=== PATIENT | male | born 1960 | race Caucasian/White ===

== ENCOUNTER 2019-01-18 07:20 | Observation (INO) | payer BC ==
--- NOTE | 2019-01-18 08:04 | ED ---
General Adult HPI - General Chief complaint: Psychiatric Symptoms Stated complaint: hallucinations Time Seen by Provider: 01/18/19 07:25 Source: patient, EMS, RN notes reviewed Mode of arrival: EMS - History of Present Illness Initial comments: This a 58-year-old male who is brought in by claude. 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 Patient was stating he got out of his some aromatic rifle because he was seeingthings in his backyard and it was concerning to him. Patient states she's never seen a syncopal for and when I asked him if he thought they were real he stated that they certainly look real to him. Patient denies any physical complaints to me. Patient denies headache patient denies numbness weakness. Patient denies chest pain difficult breathing or shortness of breath. Patient denies any palpitations. Patient denies abdominal pain patient denies nausea vomiting diarrhea. Patient denies any recent history of fever or chills patient states he didn't sleep much last night. Patient states she got home from work one coughing came home about 9:00 tonight and he doesn't really know why he didn't sleep. Patient denies any drug use and states he is not intoxicated. Patient states he has no history of any mental illness - Related Data Home Medications Medication Instructions Recorded Confirmed ALPRAZolam [Xanax] 0.5 mg PO BID 01/18/19 01/18/19 Amiodarone [Cordarone] 200 mg PO DAILY 01/18/19 01/18/19 Atorvastatin [Lipitor] 10 mg PO DAILY 01/18/19 01/18/19 Carvedilol [Coreg] 25 mg PO BID 01/18/19 01/18/19 Colchicine 0.6 mg PO BID PRN 01/18/19 01/18/19 Hydrochlorothiazide [Hydrodiuril] 25 mg PO DAILY 01/18/19 01/18/19 Levothyroxine Sodium [Synthroid] 50 mcg PO DAILY 01/18/19 01/18/19 Losartan [Cozaar] 25 mg PO DAILY 01/18/19 01/18/19 Multivitamins, Thera [Multivitamin 1 tab PO DAILY 01/18/19 01/18/19 (formulary)] [place]-3 Fatty Acids/Fish Oil [Fish 1 cap PO DAILY 01/18/19 01/18/19 Oil 1,000 mg Softgel] Rivaroxaban [Xarelto] 20 mg PO DAILY 01/18/19 01/18/19 metFORMIN HCL [Glucophage] 500 mg PO BID 01/18/19 01/18/19 Allergies Allergy/AdvReac Type Severity Reaction Status Date / Time No Known Allergies Allergy Unverified 01/18/19 08:09 Review of Systems ROS Statement: Those systems with pertinent positive or pertinent negative responses have been documented in the HPI. ROS Other: All systems not noted in ROS Statement are negative. Past Medical History Past Medical History: Unable to Obtain History of Any Multi-Drug Resistant Organisms: None Reported Past Surgical History: Unable to Obtain Past Psychological History: No Psychological Hx Reported Smoking Status: Unknown if ever smoked Past Alcohol Use History: Unable to Obtain Past Drug Use History: Unable to Obtain General Exam - General Exam Comments Initial Comments: GENERAL: Patient is well-developed and well-nourished. Patient is nontoxic and well- hydrated and is in no acute distress. ENT: Neck is soft and supple. No significant lymphadenopathy is noted. Oropharynx is clear. Moist mucous membranes. Neck has full range of motion without eliciting any pain. EYES: The sclera were anicteric and conjunctiva were pink and moist. Extraocular movements were intact and pupils were equal round and reactive to light. Eyelid s were unremarkable. PULMONARY: Unlabored respirations. Good breath sounds bilaterally. No audible rales rhonchi or wheezing was noted. CARDIOVASCULAR: There is a regular rate and rhythm without any murmurs gallops or rubs. ABDOMEN: Soft and nontender with normal bowel sounds. No palpable organomegaly was noted. There is no palpable pulsatile mass. SKIN: Skin is clear with no lesions or rashes and otherwise unremarkable. NEUROLOGIC: Patient is alert and oriented x3. Cranial nerves II through XII are grossly intact. Motor and sensory are also intact. Normal speech, volume and content. Symmetrical smile. MUSCULOSKELETAL: Normal extremities with adequate strength and full range of motion. No lower extremity swelling or edema. No calf tenderness. LYMPHATICS: No significant lymphadenopathy is noted PSYCHIATRIC: Patient was having visual hallucinations. Course Vital Signs 01/18/19 01/18/19 01/18/19 07:23 07:39 09:09 Temperature 97.0 F L Pulse Rate 70 70 71 Respiratory 18 16 18 Rate Blood Pressure 92/75 112/75 130/75 O2 Sat by Pulse 91 L 92 L 95 Oximetry Medical Decision Making - Medical Decision Making CAT scan head shows no acute abnormalities. Patient was not awake enough to speak with EPS so the patient was admitted and EPS to be contacted later. I spoke with some physicians agreed to admit the patient. - Lab Data Result diagrams: 01/18/19 08:05 01/18/19 08:05 Lab Results 01/18/19 01/18/19 01/18/19 Range/Units 08:05 08:05 08:05 WBC 6.7 (3.8-10.6) k/uL RBC 4.77 (4.30-5.90) m/uL Hgb 15.0 (13.0-17.5) gm/dL Hct 43.5 (39.0-53.0) % MCV 91.1 (80.0-100.0) fL MCH 31.4 (25.0-35.0) pg MCHC 34.5 (31.0-37.0) g/dL RDW 13.3 (11.5-15.5) % Plt Count 152 (150-450) k/uL Neutrophils % 60 % Lymphocytes % 27 % Monocytes % 9 % Eosinophils % 1 % Basophils % 1 % Neutrophils # 4.0 (1.3-7.7) k/uL Lymphocytes # 1.8 (1.0-4.8) k/uL Monocytes # 0.6 (0-1.0) k/uL Eosinophils # 0.1 (0-0.7) k/uL Basophils # 0.0 (0-0.2) k/uL Sodium 132 L (137-145) mmol/L Potassium 4.0 (3.5-5.1) mmol/L Chloride 99 (98-107) mmol/L Carbon Dioxide 25 (22-30) mmol/L Anion Gap 8 mmol/L BUN 18 (9-20) mg/dL Creatinine 0.97 (0.66-1.25) mg/dL Est GFR (CKD-EPI)AfAm >90 (>60 ml/min/1.73 sqM) Est GFR (CKD-EPI)NonAf 86 (>60 ml/min/1.73 sqM) Glucose 133 H (74-99) mg/dL Calcium 9.2 (8.4-10.2) mg/dL Magnesium 1.5 L (1.6-2.3) mg/dL Total Bilirubin 2.0 H (0.2-1.3) mg/dL AST 45 (17-59) U/L ALT 44 (21-72) U/L Alkaline Phosphatase 61 (38-126) U/L Total Protein 7.3 (6.3-8.2) g/dL Albumin 4.7 (3.5-5.0) g/dL Urine Opiates Screen Not Detected (NotDetected) Ur Oxycodone Screen Not Detected (NotDetected) Urine Methadone Screen Not Detected (NotDetected) Ur Propoxyphene Screen Not Detected (NotDetected) Ur Barbiturates Screen Not Detected (NotDetected) U Tricyclic Antidepress Not Detected (NotDetected) Ur Phencyclidine Scrn Not Detected (NotDetected) Ur Amphetamines Screen Not Detected (NotDetected) U Methamphetamines Scrn Not Detected (NotDetected) U Benzodiazepines Scrn Detected H (NotDetected) Urine Cocaine Screen Detected H (NotDetected) U Marijuana (THC) Screen Not Detected (NotDetected) Serum Alcohol <10 mg/dL Disposition Clinical Impression: Cocaine abuse with cocaine-induced psychotic disorder Disposition: ADMITTED IP TO THIS [facility] Referrals: Nonstaff,Physician [Primary Care Provider] - 1-2 days Time of Disposition: 10:35
[2019-01-18 08:21] LABS: Basophils % (A) 1 %; Eosinophils # (A) 0.1 k/uL (0-0.7); Eosinophils % (A) 1 %; HCT 43.5 % (39.0-53.0); Lymphocytes # (A) 1.8 k/uL (1.0-4.8); Lymphocytes % (A) 27 %; MCH 31.4 pg (25.0-35.0); MCHC 34.5 g/dL (31.0-37.0); MCV 91.1 fL (80.0-100.0); Mean Platelet Volume 7.9; Monocytes # (A) 0.6 k/uL (0-1.0); Monocytes % (A) 9 %; Neutrophils % (A) 60 %; Platelet Count 152 k/uL (150-450); RBC 4.77 m/uL (4.30-5.90); RDW 13.3 % (11.5-15.5); WBC 6.7 k/uL (3.8-10.6)
[2019-01-18] MEDS ORDERED: SODIUM CHLORIDE 0.9% 500 ML 500 ML IV ONE (08:25)
[2019-01-18] MEDS ORDERED: SODIUM CHLORIDE 0.9% 1,000 ML IV ONE ×2 (08:25→10:35)
[2019-01-18 08:27] LABS: Phencyclidine Screen,Urine Not Detected (NotDetected); Urn Cannabinoid Scrn Not Detected (NotDetected)
[2019-01-18 08:28] LABS: Amphetamine Screen,Urine Not Detected (NotDetected); Barbiturate Screen,Urine Not Detected (NotDetected); Benzodiazepines Screen,Urine Detected (NotDetected); Cocaine Screen,Urine Detected (NotDetected); Methadone Screen, Urine Not Detected (NotDetected); Opiate Screen,Urine Not Detected (NotDetected); Oxycodone Screen, Urine Not Detected (NotDetected); Tricyclic Antidepressant,Urine Not Detected (NotDetected)
[2019-01-18 08:35] LABS: ALT 44 U/L (21-72); AST 45 U/L (17-59); Albumin 4.7 g/dL (3.5-5.0); Alcohol <10 mg/dL; Alkaline Phosphatase 61 U/L (38-126); Anion Gap 8 mmol/L; Blood Urea Nitrogen 18 mg/dL (9-20); Calcium 9.2 mg/dL (8.4-10.2); Carbon Dioxide 25 mmol/L (22-30); Chloride 99 mmol/L (98-107); Glucose 133 mg/dL (74-99); Magnesium 1.5 mg/dL (1.6-2.3); Sodium 132 mmol/L (137-145); Total Protein 7.3 g/dL (6.3-8.2)
--- NOTE | 2019-01-18 08:44 | CT ---
EXAMINATION TYPE: CT brain wo con DATE OF EXAM: 01/18/2019 COMPARISON: None HISTORY: 58-year-old male with pain, confusion, altered mental status TECHNIQUE: Examination was done in axial plane without intravenous contrast. Coronal and sagittal r econstructions performed. CT DLP: 1129.4 mGycm Automated exposure control for dose reduction was used. FINDINGS: There is no evidence of acute intracranial hemorrhage, acute ischemic changes, mass, mass-effect, or extra-axial fluid collection. There is no effacement of cerebral sulci or basal subarachnoid cister ns. There is no hydrocephalus. There is no midline shift. Waldron-white matter distinction is preserv ed. Partially empty sella incidentally noted. Paranasal sinuses and mastoid air cells are well pneumatized. Visualized orbits and globes are intact . IMPRESSION: No acute intracranial abnormality seen.
[2019-01-18] MEDS ORDERED: MAGNESIUM SULFATE-D5W PMX 1 GM in DEXTROSE/WATER 1 100ML.BAG IVPB ONE (08:55)
[2019-01-18 09:10] VITALS: RESP 18
[2019-01-18] MEDS ORDERED: COLCHICINE 0.6 MG PO PRN (11:36)
--- NOTE | 2019-01-18 11:43 | P.HPIM ---
History of Present Illness H&P Date: 01/18/19 The patient with a PMH of mitral valve prolapse, HTN, HLD, DM, on chronic anticoagulation w/ Xarelto, and polysubstance abuse presented to the ED under police custody for paranoid behavior. History obtained from EMR since patient lethargic. The patient had reported seeing a woman walking in his backyard and had been seeing moving shadows and was concerned so thereby called 911 and was walking around his house with his gun. At time of interview, the patient was lethargic though arousable and answering questions. He noted that he hasn't slept in the past few days and had been using cocaine. The patient denied any physical complaints including headache, fever, chest pain, or SOB. He states that he simply wants to sleep as he is tired. He also denied abdominal pain, nausea, vomiting, or diarrhea. He further denied EtOH use and note she hasn't drank "in a long time". The patient underwent an extensive evaluation in the ED with brain CT negative for acute intracranial abnormalities. U tox was positive for cocaine and benzos with sodium 132, magnesium 1.5, and total bilirubin elevated at 2.0. Serum alcohol level was less than 10. Psychiatry was consulted though was unable to obtain a history. Patient was thereby admitted to the medicine service under observation for further management. Review of Systems Unable to obtain fully since patient lethargic, as per HPI Past Medical History Past Medical History: Unable to Obtain History of Any Multi-Drug Resistant Organisms: None Reported Past Surgical History: Unable to Obtain Past Psychological History: No Psychological Hx Reported Smoking Status: Unknown if ever smoked Past Alcohol Use History: Unable to Obtain Past Drug Use History: Unable to Obtain Medications and Allergies Home Medications Medication Instructions Recorded Confirmed Type ALPRAZolam [Xanax] 0.5 mg PO BID 01/18/19 01/18/19 History Amiodarone [Cordarone] 200 mg PO DAILY 01/18/19 01/18/19 History Atorvastatin [Lipitor] 10 mg PO DAILY 01/18/19 01/18/19 History Carvedilol [Coreg] 25 mg PO BID 01/18/19 01/18/19 History Colchicine 0.6 mg PO BID PRN 01/18/19 01/18/19 History Hydrochlorothiazide [Hydrodiuril] 25 mg PO DAILY 01/18/19 01/18/19 History Levothyroxine Sodium [Synthroid] 50 mcg PO DAILY 01/18/19 01/18/19 History Losartan [Cozaar] 25 mg PO DAILY 01/18/19 01/18/19 History Multivitamins, Thera [Multivitamin 1 tab PO DAILY 01/18/19 01/18/19 History (formulary)] [place]-3 Fatty Acids/Fish Oil [Fish 1 cap PO DAILY 01/18/19 01/18/19 History Oil 1,000 mg Softgel] Rivaroxaban [Xarelto] 20 mg PO DAILY 01/18/19 01/18/19 History metFORMIN HCL [Glucophage] 500 mg PO BID 01/18/19 01/18/19 History Allergies Allergy/AdvReac Type Severity Reaction Status Date / Time No Known Allergies Allergy Unverified 01/18/19 08:09 Physical Exam Vitals: Vital Signs Temp Pulse Resp BP Pulse Ox 01/18/19 11:10 98.5 F 75 18 105/56 95 01/18/19 09:09 71 18 130/75 95 01/18/19 07:39 70 16 112/75 92 L 01/18/19 07:23 97.0 F L 70 18 92/75 91 L Intake and Output 01/17/19 01/18/19 01/18/19 22:59 06:59 14:59 Other: Weight 127.006 kg General: non toxic, no distress, appears at stated age, obese, lethargic Derm: no unusual rashes/lesions no unusual ecchymoses, warm, dry Head: atraumatic, normocephalic, symmetric Eyes: EOMI, no lid lag, anicteric sclera, pupils equal round reactive to light ENT: Nose and ears atraumatic, no thrush, no pharyngeal erythema Neck: No thyromegaly, no cervical lymphadenopathy, trachea midline, supple Mouth: no lip lesion, mucus membranes somewhat dry Cardiovascular: S1S2 reg, no murmur, positive posterior tibial pulse bilateral, no edema, capillary refill less than 2 seconds Lungs: CTA bilateral, no rhonchi, no rales , no accessory muscle use Abdominal: soft, nontender to palpation, no guarding, no appreciable organomegaly, normal bowel sounds Ext: no gross muscle atrophy, moving all extremities, no contractures Neuro: Limited examination since patient lethargic Psych: Oriented to person and place, lethargic Results CBC & Chem 7: 01/18/19 08:05 01/18/19 08:05 Labs: Abnormal Lab Results - Last 24 Hours (Table) 01/18/19 01/18/19 Range/Units 08:05 08:05 Sodium 132 L (137-145) mmol/L Glucose 133 H (74-99) mg/dL Magnesium 1.5 L (1.6-2.3) mg/dL Total Bilirubin 2.0 H (0.2-1.3) mg/dL U Benzodiazepines Scrn Detected H (NotDetected) Urine Cocaine Screen Detected H (NotDetected) Assessment and Plan Plan: Altered mental status, multifactorial, possibly due to sleep deprivation vs cocaine psychosis -Monitor mental status, neuro checks -Monitor for signs of withdrawal -Psych consult Hypomagnesemia -Replaced, will monitor Chronic conditions: Hypertension, hyperkalemia, diabetes mellitus, chronic anticoagulation (unknown reason, will resume Xarelto for now) -We'll resume home meds -Lispro insulin sliding scale with blood glucose monitoring DVT//GI prophylaxis -Xarelto -Protonix The patient is admitted with an anticipated less than 2 midnight stay for evaluation of AMS. CODE STATUS:Full Code Discussed with: Patient Anticipated discharge date: Anticipated discharge place: Home A total of 45 minutes was spent on the care of this complex patient more than 50% of the time was spent in counseling and care coordination.
[2019-01-18 12:15] LABS: Glucose,Whole Blood 138 mg/dL (75-99)
[2019-01-18] MEDS: INSULIN ASPART (NovoLOG) 100 UNIT/ML VIAL SQ SCH ×3 (12:21→20:41)
[2019-01-18 17:10] LABS: Glucose,Whole Blood 219 mg/dL (75-99)
[2019-01-18] MEDS: CARVEDILOL 12.5 MG TAB PO SCH (18:07)
[2019-01-18 20:14] LABS: Glucose,Whole Blood 165 mg/dL (75-99)
[2019-01-19] MEDS: LEVOTHYROXINE 50 MCG TAB PO SCH ×2 (05:40→08:36)
[2019-01-19 05:43] VITALS: BP 112/62; PULSE 71; TEMP 97.5
[2019-01-19 07:08] LABS: Glucose,Whole Blood 267 mg/dL (75-99)
[2019-01-19 07:39] LABS: HCT 42.2 % (39.0-53.0); MCH 31.1 pg (25.0-35.0); MCHC 33.1 g/dL (31.0-37.0); MCV 93.9 fL (80.0-100.0); Mean Platelet Volume 8.2; Platelet Count 144 k/uL (150-450); RBC 4.49 m/uL (4.30-5.90); RDW 13.3 % (11.5-15.5); WBC 5.2 k/uL (3.8-10.6)
[2019-01-19 07:51] LABS: Albumin 3.8 g/dL (3.5-5.0); Calcium 9.2 mg/dL (8.4-10.2); Magnesium 1.6 mg/dL (1.6-2.3); Potassium 4.5 mmol/L (3.5-5.1); Total Bilirubin 0.7 mg/dL (0.2-1.3); Total Protein 6.1 g/dL (6.3-8.2)
[2019-01-19] MEDS: CARVEDILOL 12.5 MG TAB PO SCH (08:29)
[2019-01-19] MEDS: INSULIN ASPART (NovoLOG) 100 UNIT/ML VIAL SQ SCH ×2 (08:31→11:53)
[2019-01-19] MEDS ORDERED: NON-FORMULARY DRUG (Omega-3 Fatty Acids/Fish Oil [Fish Oil 1,000 Mg Softgel] 1 CAP) PO SCH (09:00)
[2019-01-19] MEDS ORDERED: RIVAROXABAN 20 MG TAB PO SCH (09:00)
[2019-01-19] MEDS ORDERED: AMIODARONE 200 MG TAB PO SCH (09:00)
[2019-01-19] MEDS ORDERED: HYDROCHLOROTHIAZIDE 25 MG TAB PO SCH (09:00)
[2019-01-19] MEDS ORDERED: LOSARTAN 25 MG TAB PO SCH (09:00)
[2019-01-19] MEDS ORDERED: MULTIVITAMINS, THERA 1 EACH TAB PO SCH (09:00)
[2019-01-19] MEDS ORDERED: ATORVASTATIN 10 MG TAB PO SCH (09:00)
--- NOTE | 2019-01-19 10:14 | P.CN ---
Psychiatric Consult - . Consult date: 01/19/19 Consult:: 01/19/19 09:30 Visual hallucinations Assessment and Plan Assessment: The patient with a PMH of mitral valve prolapse, HTN, HLD, DM, on chronic anticoagulation w/ Xarelto, and polysubstance abuse presented to the ED under police custody for paranoid behavior. History obtained from EMR since patient lethargic. The patient had reported seeing a woman walking in his backyard and had been seeing moving shadows and was concerned so thereby called 911 and was walking around his house with his gun. At time of interview, the patient was lethargic though arousable and answering questions. He noted that he hasn't slept in the past few days and had been using cocaine. The patient denied any physical complaints including headache, fever, chest pain, or SOB. He states that he simply wants to sleep as he is tired. He also denied abdominal pain, nausea, vomiting, or diarrhea. He further denied EtOH use and note she hasn't drank "in a long time". The patient underwent an extensive evaluation in the ED with brain CT negative for acute intracranial abnormalities. U tox was positive for cocaine and benzos with sodium 132, magnesium 1.5, and total bilirubin elevated at 2.0. Serum alcohol level was less than 10. Psychiatry was consulted though was unable to obtain a history. Patient was thereby admitted to the medicine service under observation for further management. Past Medical History Past Medical History: Unable to Obtain History of Any Multi-Drug Resistant Organisms: None Reported Past Surgical History: Unable to Obtain Past Psychological History: No Psychological Hx Reported Smoking Status: Unknown if ever smoked Past Alcohol Use History: Unable to Obtain Past Drug Use History: Unable to Obtain Medications and Allergies Home Medications Medication Instructions Recorded Confirmed Type ALPRAZolam [Xanax] 0.5 mg PO BID 01/18/19 01/18/19 History Amiodarone [Cordarone] 200 mg PO DAILY 01/18/19 01/18/19 History Atorvastatin [Lipitor] 10 mg PO DAILY 01/18/19 01/18/19 History Carvedilol [Coreg] 25 mg PO BID 01/18/19 01/18/19 History Colchicine 0.6 mg PO BID PRN 01/18/19 01/18/19 History Hydrochlorothiazide [Hydrodiuril] 25 mg PO DAILY 01/18/19 01/18/19 History Levothyroxine Sodium [Synthroid] 50 mcg PO DAILY 01/18/19 01/18/19 History Losartan [Cozaar] 25 mg PO DAILY 01/18/19 01/18/19 History Multivitamins, Thera [Multivitamin 1 tab PO DAILY 01/18/19 01/18/19 History (formulary)] [place]-3 Fatty Acids/Fish Oil [Fish 1 cap PO DAILY 01/18/19 01/18/19 History Oil 1,000 mg Softgel] Rivaroxaban [Xarelto] 20 mg PO DAILY 01/18/19 01/18/19 History metFORMIN HCL [Glucophage] 500 mg PO BID 01/18/19 01/18/19 History Allergies Allergy/AdvReac Type Severity Reaction Status Date / Time No Known Allergies Allergy Unverified 01/18/19 08:09 Mental Status Examination - The patient presents alert, pleasant, and cooperative. There calmly seated without any agitated behavior. [He] reports that [his] mood is good. Affect is congruent and euthymic. [He] deny having any suicidal or homicidal ideation intent or plan. [He] denies any auditory or visual hallucinations. There is no evidence of any delusional thought content. [His] thought process is linear and goal-directed. [His] speech is fluent and nonpressured. [His] memory and concentration is grossly intact for the purposes of this session. Psychiatric impression: Cocaine induced psychosis which is now resolved Psychiatric recommendation: He is not a candidate first 3 [facility] and appears that he stabilized now and has no acute psychosis and recommending discharge when medically stable Thank you for the consult Lex Porter D.O. PhD (1) Cocaine abuse with cocaine-induced psychotic disorder Current Visit: Yes Status: Acute Priority: Low Code(s): F14.159 - COCAINE ABUSE WITH COCAINE-INDUCED PSYCHOTIC DISORDER, UNSP SNOMED Code(s): 31591533 Time with Patient: Less than 30
--- NOTE | 2019-01-19 10:49 | P.DS ---
Providers Date of admission: 01/18/19 10:35 Expected date of discharge: 01/19/19 Attending physician: Ciaran Webster MD Consults: 01/18/19 10:35 Consult Physician Urgent Consulting Provider: Lex Porter Consult Reason/Comments: Visual hallucinations Do you want consulting provider notified?: Yes Primary care physician: Physician Nonstaff Hospital Course: The patient is a 58-year-old male with a PMH of mitral valve prolapse, Atrial flutter (on Xarelto), hypertension, hyperlipidemia, diabetes mellitus, and polysubstance abuse who presented to the ED for paranoid behavior under police custody. Upon initial examination in the ED, the patient was very lethargic and history was limited. The patient had reported to the ED staff that he saw woman walking in his backyard and then saw moving shadows and thereby became concerned and called 911 and was walking around in his house with his current. The patient's urine toxicology was positive in the ED and he was subsequently admitted to the medicine service. The patient was seen and examined at the bedside today and reported that he was having a constitution party at his house on 01/18/2019 during which time he was using cocaine. He reported that after his friends had left, he began feeling paranoid and the events as stated above transpired. He noted that when he arrived at the ED, the cocaine had started to wear off and since he had not slept the night before, he was very sleepy and was thereby unable to provide history. The patient noted that he has never had such symptoms in the past and has no psychiatric history. At time of interview, the patient denied any active complaints and notes that he feels as though he is back to normal. He denied chest pain, shortness of breath, palpitations, or cough. He also denied abdominal pain, nausea, vomiting, fever, or chills. Discussed with the patient and regarding the importance of cessation from cocaine use and any other illicit substances, especially in light of his cardiac history. Patient was seen by the psychiatry service and cleared for discharge. The patient is presently ready, stable, and agreeable for discharge to home. Physical Examination General: Non-toxic, in no acute distress, appears stated age, obese HEENT: NC/AT, anicteric sclerae, moist conjunctiva, no lid-lag, PERRLA Cardiovascular: S1/S2 wnl, no murmurs, rubs, or gallops Lungs: Clear to auscultation, normal respiratory effort, no accessory muscle use Abdominal: Soft, non-tender, non-distended, no guarding, rebound, or rigidity Skin: Warm, dry Extremities: No edema or contractures Psychiatric: Alert and oriented to person, place and time, appropriate affect Neuro: CN II-XII grossly intact, Strength 5/5 in all 4 extremities, Speech intact, Sensation to light touch grossly intact throughout Discharge diagnosis: Cocaine induced psychosis; cocaine abuse; mitral valve prolapse; atrial flutter; diabetes mellitus with hyperglycemia; hypertension some: Hyperlipidemia A total of 40 minutes of time were spent preparing this complex discharge summary. Plan - Discharge Summary Discharge Rx Participant: No New Discharge Prescriptions: Continue Rivaroxaban [Xarelto] 20 mg PO DAILY Multivitamins, Thera [Multivitamin (formulary)] 1 tab PO DAILY metFORMIN HCL [Glucophage] 500 mg PO BID Losartan [Cozaar] 25 mg PO DAILY Levothyroxine Sodium [Synthroid] 50 mcg PO DAILY Hydrochlorothiazide [Hydrodiuril] 25 mg PO DAILY Carvedilol [Coreg] 25 mg PO BID Amiodarone [Cordarone] 200 mg PO DAILY ALPRAZolam [Xanax] 0.5 mg PO BID Atorvastatin [Lipitor] 10 mg PO DAILY Colchicine 0.6 mg PO BID PRN PRN Reason: GOUT [place]-3 Fatty Acids/Fish Oil [Fish Oil 1,000 mg Softgel] 1 cap PO DAILY Discharge Medication List ALPRAZolam [Xanax] 0.5 mg PO BID 01/18/19 [History] Amiodarone [Cordarone] 200 mg PO DAILY 01/18/19 [History] Atorvastatin [Lipitor] 10 mg PO DAILY 01/18/19 [History] Carvedilol [Coreg] 25 mg PO BID 01/18/19 [History] Colchicine 0.6 mg PO BID PRN 01/18/19 [History] Hydrochlorothiazide [Hydrodiuril] 25 mg PO DAILY 01/18/19 [History] Levothyroxine Sodium [Synthroid] 50 mcg PO DAILY 01/18/19 [History] Losartan [Cozaar] 25 mg PO DAILY 01/18/19 [History] Multivitamins, Thera [Multivitamin (formulary)] 1 tab PO DAILY 01/18/19 [History] [place]-3 Fatty Acids/Fish Oil [Fish Oil 1,000 mg Softgel] 1 cap PO DAILY 01/18/19 [History] Rivaroxaban [Xarelto] 20 mg PO DAILY 01/18/19 [History] metFORMIN HCL [Glucophage] 500 mg PO BID 01/18/19 [History] Follow up Appointment(s)/Referral(s): Nonstaff,Physician [Primary Care Provider] - 1-2 days Discharge Disposition: HOME SELF-CARE
[2019-01-19 11:44] LABS: Glucose,Whole Blood 106 mg/dL (75-99)
== END 2019-01-19 12:53 | disposition home or self-care (01) ==
LOC: EC 07:20 → 3NMEDONC 10:35
PROVIDERS: ADMIT Internal Medicine; ATTEND Internal Medicine
DX: F14.159 Cocaine abuse with cocaine-induced psychotic disorder, unspecified (principal); I10 Essential (primary) hypertension; E78.5 Hyperlipidemia, unspecified; E87.5 Hyperkalemia; R53.83 Other fatigue; E66.9 Obesity, unspecified; Z68.35 Body mass index [BMI] 35.0-35.9, adult; I48.92 Unspecified atrial flutter; E11.65 Type 2 diabetes mellitus with hyperglycemia; E83.42 Hypomagnesemia; I34.1 Nonrheumatic mitral (valve) prolapse; Z79.01 Long term (current) use of anticoagulants; Z79.84 Long term (current) use of oral hypoglycemic drugs; Z79.890 Hormone replacement therapy; Z79.899 Other long term (current) drug therapy; Y90.0 Blood alcohol level of less than 20 mg/100 ml; Z71.51 Drug abuse counseling and surveillance of drug abuser
CPT/HCPCS: 96361 ×3; 96365; 99285; 36415; 80053 ×2; 83735 ×2; 85025; 85027; 80306; 80320; 70450; G0378 ×2; J3475